=== PATIENT | male | born 1975 | race Caucasian/White ===

== ENCOUNTER 2022-04-16 17:32 | Emergency (ER) | payer OTHER ==
[2022-04-16] MEDS ORDERED: CYCLOBENZAPRINE5 M3 PO (21:49)
[2022-04-16] MEDS ORDERED: NAPROSYN500 MG PO (21:49)
== END 2022-04-16 21:59 | disposition home or self-care (01) ==
LOC: ED 17:32
DX: S39.012A Strain of muscle, fascia and tendon of lower back, initial encounter (principal); S16.1XXA Strain of muscle, fascia and tendon at neck level, initial encounter; V89.2XXA Person injured in unspecified motor-vehicle accident, traffic, initial encounter; Y93.89 Activity, other specified; Y92.89 Other specified places as the place of occurrence of the external cause; Y99.8 Other external cause status

== ENCOUNTER → 2022-12-05 | Outpatient (CLI) | payer OTHER ==
[~2022-12-05] MED LIST: CYCLOBENZAPRINE5 M3 PO; NAPROSYN500 MG PO
== END | disposition home or self-care (01) ==
LOC: US 00:22
PROVIDERS: ATTEND Nurse Practitioner Primary Care
DX: R59.0 Localized enlarged lymph nodes (principal)

== ENCOUNTER → 2025-02-23 | Outpatient (CLI) | payer OTHER | END | disposition home or self-care (01) | LOC: CT 11:00 | PROVIDERS: ATTEND Nurse Practitioner | DX: R22.1 Localized swelling, mass and lump, neck (principal) ==

== ENCOUNTER → 2025-03-27 | Outpatient (CLI) | payer OTHER ==
[~2025-03-27] MED LIST changes: +IOHEXOL 300 MG/ML 100 ML VIAL IV ONE
== END | disposition home or self-care (01) ==
LOC: CT 09:00
PROVIDERS: ATTEND Nurse Practitioner
DX: R22.1 Localized swelling, mass and lump, neck (principal)

== ENCOUNTER → 2025-05-31 | Outpatient (CLI) | payer OTHER ==
[~2025-05-31] MED LIST changes: -IOHEXOL 300 MG/ML 100 ML VIAL IV ONE
[2025-05-31 10:30] LABS: BASO # 0.0 10*3/uL (0.0-0.1); BASO % 0.4 % (0.0-1.0); EOS # 0.2 10*3/uL (0.0-0.4); EOS % 3.9 % (1.0-4.0); MEAN CELL VOLUME 89.8 fl (80.0-94.0); MEAN CORPUSCULAR HGB 30.3 pg (27.0-31.0); MEAN PLATELET VOLUME 10.3 fl (9.6-12.3); MONO # 0.4 10*3/uL (0.1-1.0); MONO % 7.6 % (3.0-9.0); NEUT # 2.6 10*3/uL (2.3-7.9); NEUT % 53.2 % (47.0-73.0); NUCLEATED RED BLOOD CELL 0.0 % (0.0-0.0); NUCLEATED RED BLOOD CELL 0.0 10*3/uL (0.0-0.0); PLATELET COUNT AUTOMATED 178 10*3/uL (130-400); RED CELL DISTRI WIDTH 12.5 % (0-14.5); RETICULOCYTE % 1.69 % (0.50-2.50)
[2025-05-31 10:53] LABS: BILIRUBIN Negative (Negative); BLOOD 1+ (Negative); CLARITY Clear (Clear); COLOR Yellow (Yellow); KETONE Trace (Negative); LEUKO ESTERASE Negative (Negative); NITRITE Negative (Negative); PH 5.5 (4.5-8.0); SPECIFIC GRAVITY 1.025 (1.001-1.030); UROBILINOGEN 0.2 E.U./dl (0.0-1.0)
[2025-05-31 11:05] LABS: BUN 17 mg/dl (9-23); GAMMA GLUTAMYL TRANSFERASE 17 U/L (0-73); LDL CHOLESTEROL 68 mg/dL (9-159); SGPT/ALT 21 U/L (5-49); T3 UPTAKE 28.7 % (22.4-36.7); THYROXINE (T4) TOTAL 7.4 ug/dl (4.5-10.9); VITAMIN D, 25-HYDROXY 34.4 ng/mL (30-100)
[2025-05-31 11:51] LABS: CALCIUM OXALATE CRYSTALS 1+; WBC 0-2 wbc/hpf (0-5)
[2025-05-31 11:52] LABS: BACTERIA 1+; MUCOUS 2+
[2025-06-01 15:07] LABS: ANTI-DSDNA ANTIBODIES <1 IU/mL (0-9)
== END | disposition home or self-care (01) ==
LOC: LAB 09:59
PROVIDERS: ATTEND Family Medicine
DX: E78.5 Hyperlipidemia, unspecified (principal); E55.9 Vitamin D deficiency, unspecified; R53.83 Other fatigue; R79.89 Other specified abnormal findings of blood chemistry

== ENCOUNTER → 2025-06-01 | Outpatient (CLI) | payer OTHER | END | disposition home or self-care (01) | LOC: RAD 16:31 | PROVIDERS: ATTEND Family Medicine | DX: M51.379 Other intervertebral disc degeneration, lumbosacral region without mention of lumbar back pain or lower extremity pain (principal); M16.12 Unilateral primary osteoarthritis, left hip; M17.12 Unilateral primary osteoarthritis, left knee ==

== ENCOUNTER → 2025-07-25 | Outpatient (CLI) | payer OTHER | END | disposition home or self-care (01) | LOC: US 07-06 09:30 | PROVIDERS: ATTEND Family Medicine | DX: K76.0 Fatty (change of) liver, not elsewhere classified (principal); R10.84 Generalized abdominal pain; R10.23 Pelvic and perineal pain bilateral ==

== ENCOUNTER → 2025-08-23 | Outpatient (CLI) | payer OTHER ==
[~2025-08-23] MED LIST changes: +SINCALIDE 2 MCG in SODIUM CHLORIDE 0.9% 50 ML IV STA; +Technetium Tc 99M Mebrofenin 1 KIT KIT IV SCH
== END | disposition home or self-care (01) ==
LOC: NM 07:00
PROVIDERS: ATTEND Family Medicine
DX: R10.84 Generalized abdominal pain (principal); M19.019 Primary osteoarthritis, unspecified shoulder; M41.84 Other forms of scoliosis, thoracic region; M47.814 Spondylosis without myelopathy or radiculopathy, thoracic region